=== PATIENT | female | born 1945 | race Caucasian/White ===

== ENCOUNTER 2016-12-04 15:36 | Emergency (ER) | payer OTHER | END 2016-12-04 17:32 | disposition home or self-care (01) | LOC: FER 15:36 | DX: S82.842A Displaced bimalleolar fracture of left lower leg, initial encounter for closed fracture (principal); Z91.041 Radiographic dye allergy status; W19.XXXA Unspecified fall, initial encounter; X50.1XXA Overexertion from prolonged static or awkward postures, initial encounter; Y92.009 Unspecified place in unspecified non-institutional (private) residence as the place of occurrence of the external cause | CPT/HCPCS: 73610; 99283 ==

== ENCOUNTER 2021-04-28 14:29 | Emergency (ER) | payer OTHER ==
[2021-04-28 16:26] LABS: BASOPHIL 0 % (0-2); EOSINOPHIL 0 % (0-7); HCT 43.4 % (37.0-47.0); LYMPHOCYTE 12.5 % (15-48); MCHC 32.3 g/dL (32.0-36.0); MONOCYTE 5.4 % (0-12); MPV 10.6 fL (6.0-9.5); NEUTROPHIL 81.9 % (41-80); NRBC 0; PLT 150 K/uL (150-400); RBC 4.82 M/uL (4.20-5.40); RDW 13.2 % (11.5-14.0); WBC 4.6 K/uL (4.0-10.5)
[2021-04-28 16:40] LABS: BUN/CREAT RATIO (CALC) 11.7 RATIO; CREATININE 1.11 mg/dL (0.51-0.95); POTASSIUM 4.3 mmol/L (3.5-5.1)
[2021-04-28 17:50] LABS: BILIRUBIN NEGATIVE (NEGATIVE); BLOOD NEGATIVE Ery/uL (NEGATIVE); CLARITY CLEAR (CLEAR); COLOR YELLOW (YELLOW); GLUCOSE (U) NORMAL (NORMAL); LEUKOCYTES NEGATIVE Leu/uL (NEGATIVE); NITRITE NEGATIVE (NEGATIVE); PROTEIN TRACE (LOW) mg/dL (NEGATIVE); SPECIFIC GRAVITY 1.025 (1.001-1.030); UROBILINOGEN 0.2 mg/dL (0.2-1.0)
[2021-04-29] MEDS ORDERED: ROBITUSSIN W/COD5 ML PO (22:59)
== END 2021-04-28 18:15 | disposition home or self-care (01) ==
LOC: FER 14:29
PROVIDERS: Nurse Practitioner Family
DX: U07.1 COVID-19 (principal)
CPT/HCPCS: 36415; 71045; 80048; 81003; 85025; U0002

== ENCOUNTER 2021-04-29 17:20 | Emergency (ER) | payer OTHER ==
[2021-04-29 20:26] LABS: BASOPHIL 0.3 % (0-2); EOSINOPHIL 0.3 % (0-7); HCT 40.7 % (37.0-47.0); HGB 13.1 g/dl (12.5-16.0); LYMPHOCYTE 37.9 % (15-48); MCH 29.3 pg (25.0-31.0); MCHC 32.2 g/dL (32.0-36.0); MCV 91.1 fL (78.0-100.0); MPV 11.6 fL (6.0-9.5); NEUTROPHIL 56.2 % (41-80); NRBC 0; PLT 125 K/uL (150-400); RBC 4.47 M/uL (4.20-5.40); RDW 13.4 % (11.5-14.0)
[2021-04-29 20:43] LABS: ALBUMIN 3.5 g/dL (3.4-5.0); BILIRUBIN - TOTAL 0.4 mg/dL (0.2-1.0); BUN/CREAT RATIO (CALC) 14.9 RATIO; C-REACTIVE PROTEIN 4.5 mg/dL (<=0.90); CREATININE 1.21 mg/dL (0.51-0.95); GLOBULIN (CALCULATION) 2.8 g/dL; POTASSIUM 4.1 mmol/L (3.5-5.1); TOTAL PROTEIN 6.3 g/dL (6.4-8.2)
[2021-04-29 20:49] LABS: PRO-BNP 197 pg/mL (<125)
[2021-04-29 22:44] LABS: BILIRUBIN NEGATIVE (NEGATIVE); BLOOD NEGATIVE Ery/uL (NEGATIVE); CLARITY CLEAR (CLEAR); COLOR YELLOW (YELLOW); GLUCOSE (U) NORMAL (NORMAL); LEUKOCYTES NEGATIVE Leu/uL (NEGATIVE); NITRITE NEGATIVE (NEGATIVE); PROTEIN NEGATIVE (NEGATIVE); SPECIFIC GRAVITY 1.015 (1.001-1.030); UROBILINOGEN 0.2 mg/dL (0.2-1.0)
[2021-04-29] MEDS ORDERED: ROBITUSSIN W/COD5 ML PO (22:59)
== END 2021-04-30 00:03 | disposition home or self-care (01) ==
LOC: FER 17:20
PROVIDERS: Emergency Medicine Emergency Medical Services
DX: U07.1 COVID-19 (principal); Z23 Encounter for immunization
CPT/HCPCS: 36415; 71045; 80053; 81003; 83880; 84484; 85025; 86140; 93005; J7120; M0243; Q0244; U0002